=== PATIENT | male | born 2005 | race Caucasian/White ===

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

== ENCOUNTER 2023-02-28 16:17 | Emergency (ER) | payer OTHER, SELFPAY ==
[2023-02-28 16:33] VITALS: BP 167/90; PULSE 98; RESP 15; TEMP 37.1; O2SAT 99; BMI 23.7
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
[2023-02-28 17:09] VITALS: BP 168/92; PULSE 97; O2SAT 100
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
[2023-02-28 17:29] VITALS: BP 141/86; PULSE 92; O2SAT 99
== END 2023-02-28 17:31 | disposition home or self-care (01) ==
PROVIDERS: Emergency Provider Family Medicine
DX: S06.0X0A Concussion without loss of consciousness, initial encounter (principal); W55.22XA Struck by cow, initial encounter
CPT/HCPCS: 70450; 72040; 99284